=== PATIENT | male | born 1935 | race Caucasian/White ===

== ENCOUNTER 2017-09-04 06:54 | Emergency (ER) | payer MEDICARE ==
[~2017-09-04] VITALS: Ht 180.3 cm; Wt 80.0 kg
[~2017-09-04 06:54] MED LIST: ASPI-496 PO; ATOR10TA9 PO; CARV3.122 PO; CARV6.252 PO; CLIN300C8 PO; HYDR-3307 PO; LISI5TAB7 PO; METH750T87 PO
[2017-09-04 07:11] LABS: BASOPHILS # (AUTO) 0.05 x10^3/uL (0-0.1); BASOPHILS % (AUTO) 0 % (0-1); EOSINOPHILS # (AUTO) 0.24 x10^3/uL (0-0.4); EOSINOPHILS % (AUTO) 2 % (1-7); LYMPHOCYTES # (AUTO) 1.69 x10^3/uL (1-3.4); LYMPHOCYTES % (AUTO) 16 % (22-44); MD NO; MEAN CORPUSCULAR HEMOGLOBIN 33.3 pg (27.5-34.5); MEAN CORPUSCULAR VOLUME 98.1 fL (81-97); MEAN PLATELET VOLUME 9.1 fL (7.4-10.4); MONOCYTES # (AUTO) 0.62 x10^3/uL (0.2-0.8); MONOCYTES % (AUTO) 6 % (2-9); NEUTROPHILS # (AUTO) 8.29 x10^3/uL (1.8-6.8); NEUTROPHILS % (AUTO) 76 % (42-75); PLATELET COUNT 207 x10^3/uL (130-400); RED BLOOD COUNT 4.42 x10^6/uL (4.38-5.82); RED CELL DISTRIBUTION WIDTH 12.7 % (9.4-14.8)
[2017-09-04 07:25] LABS: ALBUMIN 3.7 g/dL (3.4-5.0); ANION GAP 8 mmol/L (5-15); CALCIUM 8.5 mg/dL (8.5-10.1); CHLORIDE 111 mmol/L (98-107); CREATININE 1.25 mg/dL (0.7-1.3)
[2017-09-04 07:28] LABS: TROPONIN I < 0.015 ng/mL (0.000-0.045)
[2017-09-04 09:07] VITALS: BP 141/85
== END 2017-09-04 10:01 | disposition home or self-care (01) ==
LOC: ED 07:45
DX: S30.0XXA Contusion of lower back and pelvis, initial encounter (principal); Z88.0 Allergy status to penicillin; Z88.8 Allergy status to other drugs, medicaments and biological substances; W01.0XXA Fall on same level from slipping, tripping and stumbling without subsequent striking against object, initial encounter; Y93.01 Activity, walking, marching and hiking; Y92.89 Other specified places as the place of occurrence of the external cause; Y99.9 Unspecified external cause status; R06.00 Dyspnea, unspecified
CPT/HCPCS: 36415; 71045; 72110; 80048; 82040; 84484; 85025; 93005; 99285

== ENCOUNTER → 2017-10-08 | Outpatient (CLI) | payer MEDICARE | LOC: SUSANVILLE 13:00 | PROVIDERS: ATTEND Internal Medicine Cardiovascular Disease | DX: I07.1 Rheumatic tricuspid insufficiency (principal); I37.1 Nonrheumatic pulmonary valve insufficiency; Z72.0 Tobacco use; Z95.810 Presence of automatic (implantable) cardiac defibrillator | CPT/HCPCS: 93306 ==

== ENCOUNTER 2018-03-30 17:49 | Inpatient (IN) | payer MEDICARE ==
[~2018-03-30] VITALS: Ht 177.8 cm; Wt 71.7 kg
[2018-03-30 22:16] VITALS: BP 142/72
[2018-03-30] MEDS ORDERED: hydrALAzine 20 MG/ML, 1ML IVPush PRN (22:30)
[2018-03-30] MEDS ORDERED: ONDANSETRON 2MG/ML, 2ML IVPush PRN (22:30)
[2018-03-30] MEDS ORDERED: POLYETHYLENE GLYCOL 17 GM PACKET PO PRN (22:30)
[2018-03-30] MEDS ORDERED: ONDANSETRON ODT 4 MG PO PRN (22:30)
[2018-03-30] MEDS ORDERED: ACETAMINOPHEN 325 MG TABLET PO PRN (22:30)
[2018-03-30] MEDS ORDERED: CARV12.5 PO (22:40)
[2018-03-30] MEDS ORDERED: FURO20TA3 PO (22:44)
[2018-03-30] MEDS ORDERED: ASPI-496 PO (22:44)
[2018-03-30] MEDS ORDERED: POTA10TA11 PO (22:44)
[2018-03-30] MEDS: ENOXAPARIN 40 MG/0.4 ML SQ SCH (23:29)
[2018-03-30] MEDS: SODIUM CHLORIDE 0.9% 1,000 ML IV SCH (23:29)
[2018-03-31 01:41] VITALS: BP 99/60
[2018-03-31 05:57] LABS: BASOPHILS # (AUTO) 0.04 x10^3/uL (0-0.1); BASOPHILS % (AUTO) 1 % (0-1); EOSINOPHILS # (AUTO) 0.53 x10^3/uL (0-0.4); EOSINOPHILS % (AUTO) 7 % (1-7); LYMPHOCYTES # (AUTO) 2.14 x10^3/uL (1-3.4); LYMPHOCYTES % (AUTO) 30 % (22-44); MD NO; MEAN CORPUSCULAR HEMOGLOBIN 33.6 pg (27.5-34.5); MEAN CORPUSCULAR HGB CONC 33.7 g/dL (33.2-36.2); MEAN CORPUSCULAR VOLUME 99.8 fL (81-97); MEAN PLATELET VOLUME 9.9 fL (7.4-10.4); MONOCYTES # (AUTO) 0.54 x10^3/uL (0.2-0.8); MONOCYTES % (AUTO) 8 % (2-9); NEUTROPHILS # (AUTO) 3.98 x10^3/uL (1.8-6.8); NEUTROPHILS % (AUTO) 55 % (42-75); PLATELET COUNT 180 x10^3/uL (130-400); RED BLOOD COUNT 3.82 x10^6/uL (4.38-5.82); RED CELL DISTRIBUTION WIDTH 13.1 % (9.4-14.8)
[2018-03-31 06:05] LABS: CHLORIDE 112 mmol/L (98-107)
[2018-03-31 06:16] LABS: ALANINE AMINOTRANSFERASE 20 U/L (12-78); ALBUMIN 3.1 g/dL (3.4-5.0); ALKALINE PHOSPHATASE 87 U/L (45-117); ANION GAP 9 mmol/L (5-15); BILIRUBIN,TOTAL 0.5 mg/dL (0.2-1.0); CALCIUM 8.3 mg/dL (8.5-10.1); CREATININE 1.16 mg/dL (0.7-1.3); TOTAL PROTEIN 6.2 g/dL (6.4-8.2)
[2018-03-31 07:04] VITALS: BP 115/71
[2018-03-31] MEDS: SODIUM CHLORIDE 0.9% 1,000 ML IV SCH (11:57)
[2018-03-31 13:50] VITALS: BP 120/74
[2018-03-31 18:43] VITALS: BP 120/64
[2018-03-31] MEDS: ATORVASTATIN 20 MG TABLET PO SCH (20:00)
[2018-03-31] MEDS: CARVEDILOL 12.5 MG TABLET PO SCH (20:00)
[2018-03-31] MEDS: ENOXAPARIN 40 MG/0.4 ML SQ SCH (22:53)
[2018-04-01] MEDS: SODIUM CHLORIDE 0.9% 1,000 ML IV SCH ×2 (01:30→16:50)
[2018-04-01 03:31] VITALS: BP 117/72
[2018-04-01 08:03] VITALS: BP 122/78
[2018-04-01] MEDS: FUROSEMIDE 20 MG TABLET PO SCH (10:26)
[2018-04-01] MEDS: CARVEDILOL 12.5 MG TABLET PO SCH ×2 (10:27→21:58)
[2018-04-01] MEDS: POTASSIUM CHLORIDE 10 MEQ TABLET.ER PO SCH (10:27)
[2018-04-01 14:08] VITALS: BP 127/74
[2018-04-01] MEDS ORDERED: FENTANYL PF 100 MCG/2ML ONE (14:18)
[2018-04-01] MEDS ORDERED: EPHEDRINE 50 MG/ML, 1ML ONE (14:49)
[2018-04-01] MEDS ORDERED: GLYCOPYRROLATE 0.2MG/1ML, 5ML ONE (15:17)
[2018-04-01] MEDS ORDERED: DEXAMETHASONE 4 MG/ML, 1ML ONE (15:17)
[2018-04-01] MEDS ORDERED: PROPOFOL 10 MG/ML, 20ML ONE (15:17)
[2018-04-01] MEDS ORDERED: SUCCINYLCHOLINE 20 MG/ML, 10ML ONE (15:17)
[2018-04-01] MEDS ORDERED: ONDANSETRON 2MG/ML, 2ML ONE (15:17)
[2018-04-01] MEDS ORDERED: ROCURONIUM 10MG/ML,5ML ONE (15:17)
[2018-04-01] MEDS ORDERED: CEFAZOLIN 1,000 MG ONE (15:17)
[2018-04-01] MEDS ORDERED: NEOSTIGMINE 1 MG/ML, 10ML ONE (15:17)
[2018-04-01] MEDS ORDERED: OXYcodone 5 MG/5 ML ORAL.SOL UDC PO PRN (15:30)
[2018-04-01] MEDS ORDERED: MEPERIDINE/PF 25MG/0.5ML IVPush PRN (15:30)
[2018-04-01] MEDS ORDERED: FENTANYL PF 100 MCG/2ML IV PRN (15:30)
[2018-04-01] MEDS ORDERED: DIPHENHYDRAMINE 50 MG/ML, 1ML IVPush PRN (15:30)
[2018-04-01] MEDS ORDERED: LABETALOL 5MG/ML, 20ML IV PRN (15:30)
[2018-04-01] MEDS ORDERED: hydrALAzine 20 MG/ML, 1ML IV PRN (15:30)
[2018-04-01] MEDS ORDERED: HYDROmorphone 1 MG/ML, 1ML IV PRN (15:30)
[2018-04-01] MEDS ORDERED: SUGAMMADEX 200 MG/2 ML IVPush ONE (15:32)
[2018-04-01] MEDS ORDERED: PHENAZOPYRIDINE 200 MG TABLET ONE (15:41)
[2018-04-01] MEDS: PHENAZOPYRIDINE 200 MG TABLET PO SCH ×2 (15:43→21:00)
[2018-04-01 18:30] VITALS: BP 122/70
[2018-04-01] MEDS: ATORVASTATIN 20 MG TABLET PO SCH (21:58)
[2018-04-01] MEDS: ENOXAPARIN 40 MG/0.4 ML SQ SCH (23:26)
[2018-04-02 01:19] VITALS: BP 96/59
[2018-04-02] MEDS: SODIUM CHLORIDE 0.9% 1,000 ML IV SCH (04:22)
[2018-04-02 07:08] VITALS: BP 128/75
[2018-04-02] MEDS: POTASSIUM CHLORIDE 10 MEQ TABLET.ER PO SCH (08:08)
[2018-04-02] MEDS: CARVEDILOL 12.5 MG TABLET PO SCH (08:08)
[2018-04-02] MEDS: FUROSEMIDE 20 MG TABLET PO SCH (08:08)
[2018-04-02] MEDS: PHENAZOPYRIDINE 200 MG TABLET PO SCH (08:09)
== END 2018-04-02 10:15 | disposition home or self-care (01) | DRG 669 ==
LOC: 4EST 21:24
PROVIDERS: ADMIT Hospitalist; ATTEND Hospitalist
PROC: 0TBB8ZZ Excision of Bladder, Via Natural or Artificial Opening Endoscopic (ICD-10-PCS; principal; 2018-04-01 16:00)
DX: C67.9 Malignant neoplasm of bladder, unspecified (principal); E44.0 Moderate protein-calorie malnutrition; N32.89 Other specified disorders of bladder; F17.290 Nicotine dependence, other tobacco product, uncomplicated; E78.5 Hyperlipidemia, unspecified; M47.9 Spondylosis, unspecified; Z82.49 Family history of ischemic heart disease and other diseases of the circulatory system; Z82.0 Family history of epilepsy and other diseases of the nervous system; Z88.0 Allergy status to penicillin; Z88.6 Allergy status to analgesic agent; Z86.73 Personal history of transient ischemic attack (TIA), and cerebral infarction without residual deficits; Z86.79 Personal history of other diseases of the circulatory system; Z90.89 Acquired absence of other organs; Z90.49 Acquired absence of other specified parts of digestive tract; Z95.810 Presence of automatic (implantable) cardiac defibrillator; Z68.22 Body mass index [BMI] 22.0-22.9, adult; Z98.42 Cataract extraction status, left eye; Z98.41 Cataract extraction status, right eye
CPT/HCPCS: 36415; 80053; 83735; 84100; 85025; 88305; 93005; G0378; J0690; J1100; J1650; J2405; J2704; J2710; J3010; J3490; J0330; J7030

== ENCOUNTER 2018-08-02 22:39 | Inpatient (IN) | payer MEDICARE ==
[~2018-08-02] VITALS: Ht 177.8 cm; Wt 69.2 kg
[~2018-08-02 22:39] MED LIST changes: +CARV12.5 PO; +FURO20TA3 PO; +POTA10TA11 PO
[2018-08-03 00:23] VITALS: BP 91/57
[2018-08-03 00:24] VITALS: BP 91/57
[2018-08-03] MEDS ORDERED: SODIUM CHLORIDE 0.9% 1,000 ML IV SCH (01:30)
[2018-08-03] MEDS ORDERED: ACETAMINOPHEN 325 MG TABLET PO PRN ×2 (01:30→10:30)
[2018-08-03] MEDS ORDERED: AMIODARONE 900 MG in DEXTROSE 5% 482 ML IV PRN (01:30)
[2018-08-03] MEDS ORDERED: FILTER 0.22 MICRON IV PRN (01:30)
[2018-08-03 03:29] VITALS: BP 103/63
[2018-08-03 05:54] LABS: BASOPHILS # (AUTO) 0.02 x10^3/uL (0-0.1); BASOPHILS % (AUTO) 0 % (0-1); EOSINOPHILS # (AUTO) 0.28 x10^3/uL (0-0.4); EOSINOPHILS % (AUTO) 3 % (1-7); LYMPHOCYTES # (AUTO) 1.46 x10^3/uL (1-3.4); LYMPHOCYTES % (AUTO) 14 % (22-44); MD NO; MEAN CORPUSCULAR HEMOGLOBIN 33.8 pg (27.5-34.5); MEAN CORPUSCULAR VOLUME 99.3 fL (81-97); MEAN PLATELET VOLUME 9.7 fL (7.4-10.4); MONOCYTES # (AUTO) 0.73 x10^3/uL (0.2-0.8); MONOCYTES % (AUTO) 7 % (2-9); NEUTROPHILS % (AUTO) 76 % (42-75); PLATELET COUNT 271 x10^3/uL (130-400); RED BLOOD COUNT 3.13 x10^6/uL (4.38-5.82); RED CELL DISTRIBUTION WIDTH 12.5 % (9.4-14.8)
[2018-08-03 06:05] LABS: CHLORIDE 113 mmol/L (98-107)
[2018-08-03 06:13] LABS: ALANINE AMINOTRANSFERASE 30 U/L (12-78); ALBUMIN 1.8 g/dL (3.4-5.0); ALKALINE PHOSPHATASE 114 U/L (45-117); ANION GAP 6 mmol/L (5-15); BILIRUBIN,TOTAL 0.3 mg/dL (0.2-1.0); CREATININE 0.99 mg/dL (0.7-1.3); TOTAL PROTEIN 5.8 g/dL (6.4-8.2)
[2018-08-03 08:09] VITALS: BP 115/68
[2018-08-03] MEDS ORDERED: DOCUSATE 100 MG CAPSULE PO PRN (10:30)
[2018-08-03] MEDS ORDERED: ONDANSETRON 2MG/ML, 2ML IVPush PRN (10:30)
[2018-08-03] MEDS ORDERED: POLYETHYLENE GLYCOL 17 GM PACKET PO PRN (10:30)
[2018-08-03] MEDS ORDERED: ENALAPRILAT 1.25 MG/ML, 2ML IVPush PRN (10:30)
[2018-08-03] MEDS ORDERED: BISACODYL 10 MG SUPP PR PRN (10:30)
[2018-08-03] MEDS: ENOXAPARIN 40 MG/0.4 ML SQ SCH (11:15)
[2018-08-03] MEDS: CEFTRIAXONE PMX 1GM/50ML 50 ML IV SCH (11:15)
[2018-08-03 12:16] VITALS: BP 115/68
[2018-08-03] MEDS: DOXYCYCLINE 100 MG in DEXTROSE 5% 250 ML IV SCH ×2 (12:56→23:36)
[2018-08-03] MEDS: CARVEDILOL 12.5 MG TABLET PO SCH (17:52)
[2018-08-03 19:08] VITALS: BP 106/61
[2018-08-03] MEDS ORDERED: TEMPLATE NON-FORMULARY MED. (Atorvastatin Calcium** 20 MG) PO SCH (21:00)
[2018-08-03] MEDS ORDERED: CARVEDILOL 12.5 MG PO SCH (21:00)
[2018-08-03] MEDS: GUAIFENESIN ER 600 MG TABLET PO SCH (21:33)
[2018-08-03] MEDS: SODIUM CHLORIDE FLUSH 10ML SYR IVF SCH (21:33)
[2018-08-03] MEDS: ATORVASTATIN 40 MG TABLET PO SCH (21:33)
[2018-08-04 01:28] VITALS: BP 104/63
[2018-08-04 05:09] LABS: BASOPHILS # (AUTO) 0.03 x10^3/uL (0-0.1); BASOPHILS % (AUTO) 0 % (0-1); EOSINOPHILS # (AUTO) 0.53 x10^3/uL (0-0.4); EOSINOPHILS % (AUTO) 5 % (1-7); LYMPHOCYTES # (AUTO) 1.62 x10^3/uL (1-3.4); LYMPHOCYTES % (AUTO) 16 % (22-44); MD NO; MEAN CORPUSCULAR HGB CONC 34.5 g/dL (33.2-36.2); MEAN CORPUSCULAR VOLUME 98.6 fL (81-97); MEAN PLATELET VOLUME 8.8 fL (7.4-10.4); MONOCYTES # (AUTO) 0.61 x10^3/uL (0.2-0.8); MONOCYTES % (AUTO) 6 % (2-9); NEUTROPHILS # (AUTO) 7.47 x10^3/uL (1.8-6.8); NEUTROPHILS % (AUTO) 73 % (42-75); PLATELET COUNT 333 x10^3/uL (130-400); RED BLOOD COUNT 3.26 x10^6/uL (4.38-5.82); RED CELL DISTRIBUTION WIDTH 12.7 % (9.4-14.8)
[2018-08-04 05:21] LABS: ANION GAP 5 mmol/L (5-15); CALCIUM 8.4 mg/dL (8.5-10.1); CHLORIDE 111 mmol/L (98-107)
[2018-08-04] MEDS: CARVEDILOL 12.5 MG TABLET PO SCH ×2 (06:34→17:19)
[2018-08-04] MEDS: ASPIRIN 81 MG TABLET EC PO SCH (06:34)
[2018-08-04 06:55] VITALS: BP 108/71
[2018-08-04] MEDS: SODIUM CHLORIDE FLUSH 10ML SYR IVF SCH ×2 (08:54→22:47)
[2018-08-04] MEDS: GUAIFENESIN ER 600 MG TABLET PO SCH ×2 (08:54→22:47)
[2018-08-04] MEDS: FUROSEMIDE 20 MG TABLET PO SCH (08:55)
[2018-08-04] MEDS: POTASSIUM CHLORIDE 10 MEQ TABLET.ER PO SCH (08:55)
[2018-08-04] MEDS: CEFTRIAXONE PMX 1GM/50ML 50 ML IV SCH (11:06)
[2018-08-04] MEDS: ENOXAPARIN 40 MG/0.4 ML SQ SCH (11:06)
[2018-08-04] MEDS: DOXYCYCLINE 100 MG in DEXTROSE 5% 250 ML IV SCH ×2 (12:04→22:47)
[2018-08-04 12:44] VITALS: BP 110/53
[2018-08-04 20:53] VITALS: BP 107/64
[2018-08-04] MEDS: ATORVASTATIN 40 MG TABLET PO SCH (22:47)
[2018-08-05 04:50] VITALS: BP 121/73
[2018-08-05 06:01] LABS: BASOPHILS # (AUTO) 0.05 x10^3/uL (0-0.1); BASOPHILS % (AUTO) 0 % (0-1); EOSINOPHILS # (AUTO) 0.39 x10^3/uL (0-0.4); EOSINOPHILS % (AUTO) 4 % (1-7); LYMPHOCYTES # (AUTO) 1.41 x10^3/uL (1-3.4); LYMPHOCYTES % (AUTO) 13 % (22-44); MD NO; MEAN CORPUSCULAR HEMOGLOBIN 33.5 pg (27.5-34.5); MEAN CORPUSCULAR HGB CONC 34.1 g/dL (33.2-36.2); MEAN CORPUSCULAR VOLUME 98.2 fL (81-97); MEAN PLATELET VOLUME 9.1 fL (7.4-10.4); MONOCYTES # (AUTO) 0.67 x10^3/uL (0.2-0.8); MONOCYTES % (AUTO) 6 % (2-9); NEUTROPHILS # (AUTO) 8.02 x10^3/uL (1.8-6.8); NEUTROPHILS % (AUTO) 76 % (42-75); PLATELET COUNT 382 x10^3/uL (130-400); RED BLOOD COUNT 3.46 x10^6/uL (4.38-5.82); RED CELL DISTRIBUTION WIDTH 12.5 % (9.4-14.8)
[2018-08-05 06:12] LABS: ANION GAP 8 mmol/L (5-15); CALCIUM 8.4 mg/dL (8.5-10.1); CHLORIDE 109 mmol/L (98-107); CREATININE 0.92 mg/dL (0.7-1.3)
[2018-08-05] MEDS: ASPIRIN 81 MG TABLET EC PO SCH (06:25)
[2018-08-05] MEDS: CARVEDILOL 12.5 MG TABLET PO SCH (06:25)
[2018-08-05 07:22] VITALS: BP 109/66
[2018-08-05] MEDS: SODIUM CHLORIDE FLUSH 10ML SYR IVF SCH (09:18)
[2018-08-05] MEDS: GUAIFENESIN ER 600 MG TABLET PO SCH (09:18)
[2018-08-05] MEDS: FUROSEMIDE 20 MG TABLET PO SCH (09:18)
[2018-08-05] MEDS: POTASSIUM CHLORIDE 10 MEQ TABLET.ER PO SCH (09:18)
[2018-08-05] MEDS ORDERED: ALBU18HF INH (10:36)
[2018-08-05] MEDS ORDERED: IPRA3AMP30 INH (10:36)
[2018-08-05] MEDS ORDERED: CEFD300C37 PO (10:36)
[2018-08-05] MEDS ORDERED: DOXY100T PO (10:36)
[2018-08-05] MEDS: CEFTRIAXONE PMX 1GM/50ML 50 ML IV SCH (11:10)
[2018-08-05] MEDS: DOXYCYCLINE 100 MG in DEXTROSE 5% 250 ML IV SCH (11:39)
[2018-08-05] MEDS: ENOXAPARIN 40 MG/0.4 ML SQ SCH (11:40)
[2018-08-05 12:14] VITALS: BP 152/82
[2018-08-05 12:35] VITALS: BP 116/74
== END 2018-08-05 13:43 | disposition home or self-care (01) | DRG 193 ==
LOC: 5SO 08-03 00:18 → DCLOUNGE 08-05 13:25
PROVIDERS: ADMIT Internal Medicine Cardiovascular Disease; ATTEND Internal Medicine Cardiovascular Disease
PROC: 4B02XTZ Measurement of Cardiac Defibrillator, External Approach (ICD-10-PCS; principal; 2018-08-03)
DX: J18.1 Lobar pneumonia, unspecified organism (principal); E43 Unspecified severe protein-calorie malnutrition; I47.1 Supraventricular tachycardia; I13.0 Hypertensive heart and chronic kidney disease with heart failure and stage 1 through stage 4 chronic kidney disease, or unspecified chronic kidney disease; I42.0 Dilated cardiomyopathy; I48.91 Unspecified atrial fibrillation; Z68.21 Body mass index [BMI] 21.0-21.9, adult; Z88.5 Allergy status to narcotic agent; Z88.0 Allergy status to penicillin; Z88.8 Allergy status to other drugs, medicaments and biological substances; D64.9 Anemia, unspecified; E78.5 Hyperlipidemia, unspecified; I25.10 Atherosclerotic heart disease of native coronary artery without angina pectoris; I25.2 Old myocardial infarction; I50.9 Heart failure, unspecified; N18.2 Chronic kidney disease, stage 2 (mild); Z82.0 Family history of epilepsy and other diseases of the nervous system; Z82.3 Family history of stroke; Z82.49 Family history of ischemic heart disease and other diseases of the circulatory system; Z86.73 Personal history of transient ischemic attack (TIA), and cerebral infarction without residual deficits; Z86.79 Personal history of other diseases of the circulatory system; Z87.891 Personal history of nicotine dependence; Z90.49 Acquired absence of other specified parts of digestive tract; Z95.810 Presence of automatic (implantable) cardiac defibrillator
CPT/HCPCS: 36415; 80048; 80053; 83735; 83880; 85025; 87040; 87070; 87205; 90656; 93005; 93306; G0378; J0696; J1650; J7060; J0282

== ENCOUNTER 2018-12-11 08:30 | Outpatient (CLI) | payer MEDICARE ==
[~2018-12-11 08:30] MED LIST changes: +ALBU18HF INH; +CEFD300C37 PO; +DOXY100T PO; +IPRA3AMP30 INH; +REGADENOSON 0.4 MG/5 ML SYRINGE ONE
== END 2018-12-11 23:59 | disposition home or self-care (01) ==
LOC: CFH 08:30
PROVIDERS: ATTEND Internal Medicine Cardiovascular Disease
DX: R94.31 Abnormal electrocardiogram [ECG] [EKG] (principal); R93.1 Abnormal findings on diagnostic imaging of heart and coronary circulation
CPT/HCPCS: 78452; 93017; A9502; J2785

== ENCOUNTER 2018-12-15 12:27 | Observation (INO) | payer MEDICARE ==
[~2018-12-15] VITALS: Ht 177.8 cm; Wt 73.4 kg
[~2018-12-15 12:27] MED LIST changes: +PHENYLEPHRINE 10 MG/ML ONE; -REGADENOSON 0.4 MG/5 ML SYRINGE ONE; +ROCURONIUM 10MG/ML,5ML ONE; +SUCCINYLCHOLINE 20 MG/ML, 10ML ONE
[2018-12-15] MEDS ORDERED: SODIUM CHLORIDE 0.9% 1,000 ML IV SCH (13:18)
[2018-12-15 13:27] VITALS: BP 147/95
[2018-12-15] MEDS ORDERED: PLEASE ENTER HEIGHT AND WEIGHT MC SCH (13:30)
[2018-12-15] MEDS ORDERED: ASPI-496 PO (13:36)
[2018-12-15 13:51] LABS: BASOPHILS # (AUTO) 0.08 x10^3/uL (0-0.1); BASOPHILS % (AUTO) 1 % (0-1); EOSINOPHILS # (AUTO) 0.41 x10^3/uL (0-0.4); EOSINOPHILS % (AUTO) 5 % (1-7); LYMPHOCYTES # (AUTO) 1.96 x10^3/uL (1-3.4); LYMPHOCYTES % (AUTO) 23 % (22-44); MD NO; MEAN CORPUSCULAR HEMOGLOBIN 32.8 pg (27.5-34.5); MEAN CORPUSCULAR HGB CONC 33.1 g/dL (33.2-36.2); MEAN CORPUSCULAR VOLUME 99.2 fL (81-97); MEAN PLATELET VOLUME 8.7 fL (7.4-10.4); MONOCYTES # (AUTO) 0.59 x10^3/uL (0.2-0.8); MONOCYTES % (AUTO) 7 % (2-9); NEUTROPHILS # (AUTO) 5.53 x10^3/uL (1.8-6.8); NEUTROPHILS % (AUTO) 65 % (42-75); PLATELET COUNT 217 x10^3/uL (130-400); RED BLOOD COUNT 4.25 x10^6/uL (4.38-5.82); RED CELL DISTRIBUTION WIDTH 12.6 % (9.4-14.8)
[2018-12-15 14:03] LABS: ALBUMIN 3.6 g/dL (3.4-5.0); ANION GAP 5 mmol/L (5-15); CALCIUM 8.9 mg/dL (8.5-10.1); CHLORIDE 111 mmol/L (98-107)
[2018-12-15 14:07] LABS: ALANINE AMINOTRANSFERASE 21 U/L (12-78); ALKALINE PHOSPHATASE 119 U/L (45-117); BILIRUBIN,TOTAL 0.8 mg/dL (0.2-1.0); CREATININE 1.13 mg/dL (0.7-1.3)
[2018-12-15] MEDS ORDERED: FENTANYL PF 100 MCG/2ML ONE (14:39)
[2018-12-15] MEDS ORDERED: ISOPROTERENOL 0.2MG/ML, 5ML ONE (15:10)
[2018-12-15] MEDS ORDERED: LIDOCAINE 1%, 20ML ONE (15:34)
[2018-12-15] MEDS ORDERED: DEXAMETHASONE 4 MG/ML, 1ML ONE ×3 (15:36→16:37)
[2018-12-15] MEDS ORDERED: PROPOFOL 10 MG/ML, 20ML ONE (16:37)
[2018-12-15] MEDS ORDERED: ONDANSETRON 2MG/ML, 2ML ONE ×2 (16:37)
[2018-12-15] MEDS ORDERED: LABETALOL 5MG/ML, 20ML IV PRN (17:00)
[2018-12-15] MEDS ORDERED: ONDANSETRON 2MG/ML, 2ML IV PRN (17:00)
[2018-12-15] MEDS ORDERED: MEPERIDINE/PF 25MG/0.5ML IVPush PRN (17:00)
[2018-12-15] MEDS ORDERED: HYDROmorphone 2 MG/ML, 1ML IVPush PRN (17:00)
[2018-12-15] MEDS ORDERED: hydrALAzine 20 MG/ML, 1ML IV PRN (17:00)
[2018-12-15] MEDS ORDERED: ACETAMINOPHEN 325 MG TABLET PO PRN (17:00)
[2018-12-15] MEDS ORDERED: DIAZEPAM 5 MG/ML, 2ML IVPush PRN (17:00)
[2018-12-15] MEDS ORDERED: ONDANSETRON ODT 8 MG PO PRN (17:00)
[2018-12-15] MEDS ORDERED: OXYcodone 5 MG/5 ML ORAL.SOL UDC PO PRN (17:00)
[2018-12-15] MEDS ORDERED: PROMETHAZINE 25 MG/ML, 1ML IV PRN (17:00)
[2018-12-15] MEDS ORDERED: MORPHINE SULFATE 4 MG/ML, 1ML IVPush PRN (17:00)
[2018-12-15] MEDS ORDERED: ALBUTEROL SULFATE 2.5 MG/3 ML NPPB PRN (17:00)
[2018-12-15] MEDS ORDERED: PROMETHAZINE 12.5 MG SUPP PR PRN (17:00)
[2018-12-15] MEDS ORDERED: FENTANYL PF 100 MCG/2ML IV PRN (17:00)
[2018-12-15] MEDS ORDERED: EPHEDRINE 50 MG/ML, 1ML IVPush PRN (17:00)
[2018-12-15] MEDS ORDERED: MIDAZOLAM 1 MG/ML, 2ML IV PRN (17:00)
[2018-12-15] MEDS ORDERED: HALOPERIDOL 5 MG/ML IV PRN (17:00)
[2018-12-15 18:40] VITALS: BP 124/73
[2018-12-15] MEDS: CARVEDILOL 12.5 MG TABLET PO SCH (20:35)
[2018-12-15] MEDS ORDERED: ATORVASTATIN 20 MG TABLET PO SCH (21:00)
[2018-12-15] MEDS: SODIUM CHLORIDE 0.9% 1,000 ML IV SCH ×2 (21:18→23:45)
[2018-12-16 01:30] VITALS: BP 94/58
[2018-12-16 07:38] VITALS: BP 104/58
[2018-12-16] MEDS ORDERED: ASPIRIN 81 MG TABLET EC PO SCH (09:00)
[2018-12-16] MEDS: CARVEDILOL 12.5 MG TABLET PO SCH (09:37)
== END 2018-12-16 11:00 | disposition home or self-care (01) ==
LOC: CACL 12:27 → EDIP 17:48 → 5SO 18:40 → DCLOUNGE 12-16 10:43
PROVIDERS: ADMIT Internal Medicine Cardiovascular Disease; ATTEND Internal Medicine Cardiovascular Disease
DX: I47.1 Supraventricular tachycardia (principal); I47.2 Ventricular tachycardia; Z79.899 Other long term (current) drug therapy
CPT/HCPCS: 36415; 80053; 85025; 93005; 93613; 93623; 93653; C1730; C1894; C2630; G0378; J0330; J1100; J2370; J2405; J2704; J3010; J3490

== ENCOUNTER 2019-02-23 08:00 | Outpatient (CLI) | payer MEDICARE | END 2019-02-23 23:59 | disposition home or self-care (01) | LOC: SUSANVILLE 08:00 | PROVIDERS: ATTEND Internal Medicine Cardiovascular Disease | DX: I08.1 Rheumatic disorders of both mitral and tricuspid valves (principal); E78.5 Hyperlipidemia, unspecified; I10 Essential (primary) hypertension | CPT/HCPCS: 93306 ==